=== PATIENT | male | born 1955 | race Caucasian/White ===

== ENCOUNTER → 2019-08-05 10:17 | Outpatient (CLI) | payer MEDICARE, SELFPAY ==
--- NOTE | ~2019-08-05 | CT_ITS ---
EXAMINATION: CT chest abdomen pelvis w con EXAM DATE: 08/05/2019 10:46 INDICATION: Malignant neoplasm of overlapping sites, colon, cecum. TECHNIQUE: Spiral CT of the chest, abdomen and pelvis was performed following intravenous injection o f 100 mL Omnipaque 350. Axial, coronal and sagittal images were reviewed. Coronal maximum intensity pixel images of chest reviewed. The dose-length product (DLP) for this examination was 1104.02 mGy- cm. The exposure was tailored according to patient size (auto mA exposure control), and iterative re construction (ASIR) was used as additional dose reduction technique. Comparison is made to prior exam ination from 02/05/2019. FINDINGS: CHEST: There is 5 mm right middle lobe nodule, stable compared to prior study. This is the largest n odule identified. 4 mm left lower lobe pleural-based nodule is also stable. There is mild emphysema. Several small right sided pleural plaques. Small regions of linear scarring. There are no pleural or pericardial effusions. Tracheobronchial tree is patent. There is no mediastinal, hilar or axillar y lymphadenopathy. There is no pneumothorax. Heart normal in size. No evidence of coronary masha rial calcification. ABDOMEN PELVIS: Normal calibered aorta. Again there is right lower mesenteric soft tissue somewhat il l-defined, with interval decrease in size measuring about 1.4 cm today, could be scarring. The liver, spleen, adrenal glands and pancreas are unremarkable. Gallbladder is unremarkable. No biliary obst ruction. Portal and splenic veins are patent. Kidneys enhance symmetrically. There is no hydroneph rosis. The prostate is unremarkable. The bladder is collapsed at time of imaging limiting evaluati on. There is no retroperitoneal or pelvic lymphadenopathy. There is mild scattered arterioscleroti c disease. Status post right hemicolectomy. Intact anastomosis site without wall thickening. There is mild scatt ered colonic diverticulosis. There is no adjacent inflammatory change to suggest diverticulitis. The stomach and small bowel are unremarkable. There is expected amount of colonic stool. No free intr aperitoneal gas. The bones are unremarkable. IMPRESSION: 1. Stable CT small lung nodules. 2. Right lower quadrant mesenteric soft tissue with decrease in size. Reviewed, dictated and finalized at location B. RAL MEDICAL PRACTITIONER
[2019-08-05 10:40] LABS: Blood Urea Nitrogen 19 mg/dL (8-26); Estimated Glomerular Filt Rate > 60
== END ==
PROVIDERS: PCP Internal Medicine; Visit Provider Internal Medicine Medical Oncology
DX: C18.8 Malignant neoplasm of overlapping sites of colon (principal); C18.0 Malignant neoplasm of cecum; R91.8 Other nonspecific abnormal finding of lung field
CPT/HCPCS: 71260; 74177; Q9967

== ENCOUNTER → 2020-07-31 08:47 | Outpatient (CLI) | payer MEDICARE, SELFPAY ==
--- NOTE | ~2020-07-31 | CT_ITS ---
EXAMINATION: CT chest abdomen pelvis w con DATE: 07/31/2020 09:13 INDICATION: Malignant neoplasm of overlapping sites of colon. TECHNIQUE: Computed tomography (CT) of the chest, abdomen, and pelvis was performed with 100 mm Omnip aque 350 intravenous contrast. Automated exposure control and iterative reconstruction technique were employed. The dose-length product was 1149.83 mGy-cm. COMPARISON: CT chest, abdomen, and pelvis 08/05/2019, 02/05/19, 05/21/18 FINDINGS: CHEST CT: There are changes of right lung upper lobectomy. There are a few scattered nodules in the lungs measu ring up to 5 mm in right lower lobe. There is a 7 mm pleural-based nodule at the right major fissure. There is mild atelectasis bilaterally. No pleural effusion. The heart size is normal. There are [place] nary artery calcifications. No pericardial effusion. There is mild thoracic spondylosis. ABDOMEN/PELVIS CT: The liver, gallbladder, spleen, pancreas, adrenal glands, and kidneys are normal. The prostate is mil dly enlarged. There are changes of right hemicolectomy. There are no dilated loops of bowel. There ar e no pathologically enlarged lymph nodes. There is no free intraperitoneal fluid. There is mild lumba r spondylosis. IMPRESSION: 1. Pulmonary nodules stable from 05/21/2018, likely benign. Reviewed, dictated and finalized at location A. Y EDITOR
[2020-07-31 09:01] LABS: Estimated Glomerular Filt Rate > 60
== END ==
PROVIDERS: Visit Provider Internal Medicine Medical Oncology
DX: C18.8 Malignant neoplasm of overlapping sites of colon (principal); C18.0 Malignant neoplasm of cecum; R91.8 Other nonspecific abnormal finding of lung field
CPT/HCPCS: 71260; 74177; Q9967

== ENCOUNTER → 2021-08-01 09:36 | Outpatient (CLI) | payer MEDICARE, SELFPAY ==
--- NOTE | ~2021-08-01 | CT_ITS ---
EXAMINATION: CT chest abdomen pelvis w con EXAM DATE: 08/01/2021 10:14 INDICATION: Malignant neoplasm of overlapping sites of colon . Right upper lobe resection. TECHNIQUE: Spiral CT of the chest, abdomen and pelvis was performed following intravenous injection o f 100 mL Omnipaque 350. Axial, coronal and sagittal images chest, abdomen and pelvis were reviewed. Coronal maximum intensity pixel images of chest reviewed. The dose-length product (DLP) for this ex amination was 1209.51 mGy-cm. The exposure was tailored according to patient size (auto mA exposure control), and iterative reconstruction (ASIR) was used as additional dose reduction technique. Compar ara is made to prior examination from 07/31/2020. FINDINGS: CHEST: Surgical changes from partial right pneumonectomy. Small amount of scattered bilateral lung p ost infectious residua. There are no pleural or pericardial effusions. Tracheobronchial tree is pa tent. There is no mediastinal, hilar or axillary lymphadenopathy. There is no pneumothorax. Hea rt normal in size. There is mild coronary arterial calcification, arterial sclerosis. No central pu lmonary emboli. ABDOMEN PELVIS: The liver, spleen, adrenal glands and pancreas are unremarkable. Gallbladder is unre markable. No biliary obstruction. Portal and splenic veins are patent. Kidneys enhance symmetrical ly. There is no hydronephrosis. Mild prostatomegaly. The bladder is unremarkable. There is no re troperitoneal or pelvic lymphadenopathy. There is mild to moderate scattered arteriosclerotic disea se. Status post right hemicolectomy, stable postoperative appearance. The stomach and small bowel are un remarkable. There is expected amount of colonic stool. No free intraperitoneal gas. There are no osteoblastic or osteolytic lesions identified. IMPRESSION: Stable surgical changes from right upper lobectomy and right hemicolectomy. No evidence o f metastatic disease. Reviewed, dictated and finalized at location A. OR DEVELOPER IMPRESSION: Stable surgical changes from right upper lobectomy and right hemico lectomy. No evidence of metastatic disease.
[2021-08-01 10:02] LABS: Estimated Glomerular Filt Rate > 60
== END ==
PROVIDERS: PCP Internal Medicine; Visit Provider Internal Medicine Medical Oncology
DX: C18.0 Malignant neoplasm of cecum (principal); C18.8 Malignant neoplasm of overlapping sites of colon
CPT/HCPCS: 71260; 74177; Q9967

== ENCOUNTER 2023-11-18 02:32 | Day surgery (SDC) | payer MEDICARE, SELFPAY ==
[2023-11-03 11:04] VITALS: BMI 28.0
[2023-11-18 10:07] VITALS: BP 122/91; PULSE 92; RESP 18; TEMP 36.3; O2SAT 100
[2023-11-18] MEDS: LACTATED RINGERS 1,000 ML 150 ML IV CONT (10:15)
--- NOTE | 2023-11-18 11:00 | PM.HPGS ---
History of Present Illness History of Present Illness Consent: Risks, benefits, and alternatives have been discussed and questions answered. Patient agrees to proceed with procedure. Chief complaint: Personal history of other malignant neoplasm of la Narrative: Taj Palacios is a 68 year old male with colon cancer diagnosed about 7 years ago when had colonoscopy then partial colectomy, also met to lung but treated with partial lobectomy and chemotherapy. He has not required more treatment for last 5 years and recent imaging negative for lesions. He has not had colonoscopy since diagnosis and needs another one. Review of Systems Review of Systems: All systems reviewed & are unremarkable except as noted in HPI and below PMFSH Past Medical History Medical History Colon cancer metastasized to lung History of colon cancer Scalp lesion Family History Family History Mother Family history of arthritis Father Family history of type 2 diabetes mellitus Diabetes mellitus Grandparent Diabetes mellitus Sibling Diabetes mellitus Social History Social History Smoking status: Never smoker Alcohol intake: current Drinks per week: 1 Alcohol use details: occasionally Substance use: never Substance use type: does not use Lack of Transportation: No Lack of Food: Never True Current Housing: I Have Housing Concerned About Future Housing: No Difficulty Paying Gas/Electric Bills: No Difficulty Paying for Meds: No Currently Unemployed: No Education: Master's Degree or Higher Difficulty w/ Childcare or Family Care: No Living arrangements: alone Spiritual care concerns: No Meds Home Medications and Allergies Home Medications Medication Instructions Recorded Confirmed Type atorvastatin 40 mg tablet 40 mg PO DAILY #90 tabs 08/06/23 11/03/23 Rx Allergies Allergy/AdvReac Type Severity Reaction Status Date / Time No Known Allergies Allergy Verified 11/18/23 10:07 Vital Signs Vital Signs - 24 hr 11/18/23 10:07 Temperature 97.3 F L Pulse Rate 92 Respiratory Rate 18 Blood Pressure 122/91 H Pulse Oximetry 100 Oxygen Delivery Room Air Exam Const: General: comfortable and no acute distress HENMT: Face/Nose/Sinus: Normal nares present Eyes: General: appearance normal, both eyes and all related structures Neck: Neck: no JVD Resp: Auscultation: clear to auscultation bilaterally Cardio: Rate: regular rate Rhythm: regular rhythm GI: Inspection: non-distended GI Palp: Yes Soft to palpation Skin: General skin exam: normal color Neuro: General: gait normal Speech: normal speech Extrem: General: normal to inspection Psych: Mental Status: mental status grossly normal Assessment and Plan Assessment and plan (1) History of colon cancer: Code(s): Z85.038 - Personal history of other malignant neoplasm of large intestine Status: Acute Assessment and Plan: colonoscopy
--- NOTE | 2023-11-18 11:05 | P.PNAN_ITS ---
Anes - Initial Pre Proc Eval Procedure: Operation Date: 11/18/23 11:30 Proposed Procedures p Colonoscopy - Abdias Nichole MD Date/Time: 11/18/23 11:05 Surgeon: Abdias Nichole MD Pre Op Diagnosis: Personal history of other malignant neoplasm of la Patient Data Age: 68 Gender: M Height: 1.78 m Weight: 85 kg Last Vital Signs Temp 97.3 F L 11/18/23 10:07 Pulse 92 11/18/23 10:07 Resp 18 11/18/23 10:07 BP 122/91 H 11/18/23 10:07 Pulse Ox 100 11/18/23 10:07 O2 Del Method Room Air 11/18/23 10:07 Allergies Allergy/AdvReac Type Severity Reaction Status Date / Time No Known Allergies Allergy Verified 11/18/23 10:07 Home Medications Medication Instructions Recorded Confirmed Type atorvastatin 40 mg tablet 40 mg PO DAILY #90 tabs 08/06/23 11/03/23 Rx Patient hx anesthesia problems: none Family hx anesthesia problems: none Results Review: All pre-operative results and documents have been reviewed as part of the pre- operative evaluation. [facility] Past Medical History Medical History Colon cancer metastasized to lung History of colon cancer Scalp lesion Family History Family History Mother Family history of arthritis Father Family history of type 2 diabetes mellitus Diabetes mellitus Grandparent Diabetes mellitus Sibling Diabetes mellitus Social History Social History Smoking status: Never smoker Alcohol intake: current Drinks per week: 1 Alcohol use details: occasionally Substance use: never Substance use type: does not use Lack of Transportation: No Lack of Food: Never True Current Housing: I Have Housing Concerned About Future Housing: No Difficulty Paying Gas/Electric Bills: No Difficulty Paying for Meds: No Currently Unemployed: No Education: Master's Degree or Higher Difficulty w/ Childcare or Family Care: No Living arrangements: alone Spiritual care concerns: No Anes - Eval Final PreProcedure Day of Procedure 11/18/23 11:05 Patient weight: normal Heart: regular rate and rhythm Lungs: clear to auscultation Airway: Mallampati scale class II Neurological: alert and oriented Last oral intake: >/= 8 hours ASA classification: III Emergent: no Anesthetic plan: proceed Anesthesia type and monitoring: general GIVS and standard monitoring Results Review: All pre-operative results and documents have been reviewed as part of the pre- operative evaluation. Informed Consent: The patient's anesthetic plan and its attendant risks and benefits were discussed with the patient/family/POA. Questions were solicited and answers provided to the satisfaction of the patient/family/POA.
[2023-11-18 11:20] VITALS: BP 98/64; PULSE 86; RESP 14; O2SAT 94
[2023-11-18 11:30] VITALS: BP 99/71; PULSE 83; RESP 22; O2SAT 95
[2023-11-18 11:40] VITALS: BP 94/65; PULSE 70; RESP 16; O2SAT 96
== END 2023-11-18 12:35 | disposition home or self-care (01) ==
PROVIDERS: PCP Nurse Practitioner; Visit Provider Internal Medicine Gastroenterology
PROC: 0DJD8ZZ Inspection of Lower Intestinal Tract, Via Natural or Artificial Opening Endoscopic (ICD-10-PCS; CPT 45378; principal; 2023-11-18 11:30)
DX: Z12.11 Encounter for screening for malignant neoplasm of colon (principal); K64.8 Other hemorrhoids; K57.30 Diverticulosis of large intestine without perforation or abscess without bleeding; Z98.890 Other specified postprocedural states; Z98.0 Intestinal bypass and anastomosis status; Z90.49 Acquired absence of other specified parts of digestive tract; Z85.038 Personal history of other malignant neoplasm of large intestine; Z85.118 Personal history of other malignant neoplasm of bronchus and lung
CPT/HCPCS: G0105; J2704; J7120

== ENCOUNTER 2024-01-20 09:32 | Outpatient (CLI) | payer MEDICARE, SELFPAY ==
--- NOTE | ~2024-01-20 | CT_ITS ---
CT of the Abdomen and Pelvis: Indication: Prostate cancer Technique: 2.5 mm axial scans were obtained through the abdomen and pelvis following intravenous adm inistration of 100 cc of Omnipaque 350. Dose reduction technique was used on this scan by utilizing a utomated exposure control and iterative reconstruction technique. The dose-length product (DLP) was 7 04.34 mGy-cm. COMPARISON: 08/01/2021 Findings: Scans through the lung bases demonstrates stable small pleural-based nodule at the left graciela ng base. Probable diffuse hepatic steatosis. The spleen, pancreas, gallbladder, adrenals and kidneys are withi n normal limits. No evidence of aortic aneurysm. No lymphadenopathy. No bowel obstruction or bowel wall thickening. Evidence of prior right partial colectomy.. Images through the pelvis were performed. Urinary bladder unremarkable. No pelvic mass seen. Prostate gland mildly enlarged. No ascites. Impression: No evidence of metastatic disease identified. Enlarged prostate gland, similar to prior exam. Diffuse hepatic steatosis. Reviewed, dictated and finalized at [facility]. Impression: No evidence of metastatic disease identified. Enlarged prostate gland, similar to prior exam. Diffuse hepatic steatosis.
--- NOTE | ~2024-01-20 | NM_ITS ---
EXAMINATION: NM bone scan whole body DATE: 01/20/2024 14:09 INDICATION: Prostate cancer TECHNIQUE: 25.4 mCi Tc-99m HDP was administered intravenously. Delayed whole-body scintigrams were o btained. COMPARISON: CT dated 01/20/2024 FINDINGS: Mild likely degenerative joint centered uptake at the right acromioclavicular joint, multiple joints at the bilateral hands and wrists, right greater than left, at the bilateral knees and bilateral mid feet. Additional likely degenerative enthesopathic uptake along the greater tuberosity of the proxima l left humerus. No other atypical foci of abnormal bone uptake to suggest metastatic disease. IMPRESSION: 1. No lesion suspicious for metastatic disease. Reviewed, dictated and finalized at location A.
[2024-01-20 10:04] LABS: Estimated Glomerular Filt Rate > 60
== END 2024-01-20 09:33 | disposition home or self-care (01) ==
PROVIDERS: PCP Nurse Practitioner; Visit Provider Urology
DX: C61 Malignant neoplasm of prostate (principal)
CPT/HCPCS: 74177; 78306; A9503; Q9967